=== PATIENT | female | born 1955 | race Caucasian/White ===

== ENCOUNTER 2016-12-20 13:25 | Day surgery (SDC) | payer BC, SELFPAY ==
[2016-12-19 14:32] LABS: BASOPHILS 1.1 %; BASOPHILS ABSOLUTE 0.07 10/3/uL (0.0-0.16); EOSINOPHILS 2.9 %; EOSINOPHILS ABSOLUTE 0.19 10/3/uL (0.0-0.53); IMMATURE GRANULOCYTES 0.5 %; IMMATURE GRANULOCYTES ABSOLUTE 0.03 10/3/uL (0.0-0.11); LYMPHOCYTES 31.1 %; LYMPHOCYTES ABSOLUTE 2.01 10/3/uL (0.67-4.30); MEAN CORPUS HGB CONC 32.5 g/dL (32.0-36.0); MEAN CORPUSCULAR VOLUME 85.9 fL (80-100); MEAN PLATELET VOLUME 10.2 fL (9.2-13.0); MONOCYTES 4.3 %; MONOCYTES ABSOLUTE 0.28 10/3/uL (0.21-1.20); NEUTROPHILS 60.1 %; NEUTROPHILS ABSOLUTE 3.89 10/3/uL (2.02-8.40); PLATELET COUNT 242 10/3/uL (150-400); WHITE BLOOD CELLS 6.5 10/3/uL (4.5-10.5)
[2016-12-19 14:33] LABS: HEMATOCRIT 37.8 % (36.0-48.0); HEMOGLOBIN 12.3 g/dL (12.0-16.0); MANUAL DIFF NO %
[2016-12-19 14:39] LABS: BUN (BLOOD UREA NITROGEN) 15 MG/DL (6-23); CHLORIDE, SERUM 106 MMOL/L (96-112); CO2 (CARBON DIOXIDE) 28 MMOL/L (24-34); CREATININE 1.03 MG/DL (0.55-1.02); GFR AFRICAN AMERICAN 68 ML/MIN (>=60); GFR NON AFRICAN AMERICAN 59 ML/MIN (>=60); GLUCOSE, SERUM 109 MG/DL (60-99); POTASSIUM, SERUM 3.9 MMOL/L (3.5-5.3); SODIUM, SERUM 143 MMOL/L (135-148)
--- NOTE | ~2016-12-20 | OP ---
Record Of Operation [facility] [address] [place]. [address] NAME: UHMBERTO AUGUST : 57 STATUS : [facility]#: [id number] AGE: 61 ADM/REG DATE : 12/20/16 MR#: [id number] REPORT SERV DATE: 12/21/16 DICTATED BY: LULI PRUITT DATE: 12/20/16 REPORT STATUS : Draft TRANSCRIBED BY: MODL DATE: 12/20/16 DATE OF PROCEDURE: 12/20/2016 POSTOPERATIVE DIAGNOSES: 1. Gross hematuria. 2. Bladder mass. POSTOPERATIVE DIAGNOSES: 1. Gross hematuria. 2. Bladder mass. PROCEDURE PERFORMED: 1. Cystoscopy with transurethral resection of bladder tumor (small in 2 cm). 2. Cystogram. ANESTHESIA: General. SPECIMEN: Biopsy and subsequent resection of a mass at the bladder dome. INDICATION: Ms. August is a 61-year-old with history of endometrial cancer, treated with radical hysterectomy and radiation in 2016. She had gross hematuria recently. CT of the abdomen with IV contrast shows a mass at the bladder dome as well as possible fistula. She presents for cystoscopy with biopsy to rule out recurrent malignancy. The cystoscopic appearance of this bladder mass was atypical for a primary bladder cancer. TECHNIQUE: Informed consent was obtained. She received Levaquin preop. She was brought to the operating room. General anesthesia was administered. The genitals and perineum were prepped and draped in the lithotomy position in sterile fashion. Rigid cystoscopy was performed. There was no sediment within the bladder. No papillary lesions. Clear efflux was seen on the right and the left. A 2-3 cm mass protruded into the dome of the bladder. I performed a cystogram with the Isovue through the cystoscope. There was no extravasation. There was minor impingement at the dome of the bladder. The bladder was drained. There was no contrast outside the bladder. I took rigid biopsies from the mass at the bladder dome x3. These were sent for frozen section analysis. Frozen section was inconclusive and showed no obvious malignancy. I removed the cystoscope, placed a 26-Thai resectoscope loop. Glycine was used for irrigation. Approximately, 10 swipes of the mass at the bladder dome were obtained to allow for adequate pathologic analysis. There was no apparent fistula that was firm and indurated tissue that was resected. No papillary features. The bed of this resection was fulgurated for hemostasis. I removed the resectoscope. Hemostasis was confirmed under low filling pressures. The resected tissue was sent for permanent pathologic analysis. I will see her back in a week to go over the biopsy results. OFELIA/MEHDI Record Of [address] [place]. [place]. [address] NAME: HUMBERTO AUGUST : 57 STATUS : [facility] PAT#: [id number] AGE: 61 ADM/REG DATE : 12/20/16 MR#: [id number] REPORT SERV DATE: 12/21/16 DICTATED BY: LULI PRUITT DATE: 12/20/16 REPORT STATUS : Draft TRANSCRIBED BY: MEHDI DATE: 12/20/16 Luli Pruitt M.D. / [id number] CC: Jorge Qureshi M.D.
[~2016-12-20 13:25] MED LIST: ADVIL PO; CIP5 PO; CLEOCIN300 MG PO; EX-LAX PO; FLAG500TAB PO; FLORASTOR250 MG PO; KLOR-CON M2020 MEQ PO; L40 PO; LISINOPRIL40 MG PO; MIRALAX POWDER1 PKT PO; MIRALAXPKT PO; NORCO1 TA2 PO; PCET PO; PROAIR HFA INH; PROBIOTIC OTC PO; PROTONIX PO; T PO; VITAMIN D2000 UNIT PO; ZOFRAN ODT4 MG PO; ZOFRAN8 PO; [UNRECOGNIZED DRUG - OTHER] TOP
[2017-02-20] MEDS ORDERED: PROBIOTIC PO (13:12)
[2017-02-20] MEDS ORDERED: KLOR-CON M2020 MEQ PO (13:13)
[2017-02-20] MEDS ORDERED: L40 PO (13:14)
[2017-04-02] MEDS ORDERED: NORCO1 TA2 PO (09:40)
[2017-04-02] MEDS ORDERED: K500 PO (09:46)
== END 2016-12-20 18:29 | disposition home or self-care (01) ==
LOC: SDC 13:25
PROVIDERS: Urology
PROC: 0TBB8ZX Excision of Bladder, Via Natural or Artificial Opening Endoscopic, Diagnostic (ICD-10-PCS; principal; 2016-12-20 15:15)
DX: N30.21 Other chronic cystitis with hematuria (principal); I11.0 Hypertensive heart disease with heart failure; I50.9 Heart failure, unspecified; I25.2 Old myocardial infarction; Z90.710 Acquired absence of both cervix and uterus
CPT/HCPCS: 80048; 85025; 88305; 88331; 93005; C1758; J2250; J2370; J2405; J2550; J3010; Q9967